=== PATIENT | female | born 1960 | race African-American/Black ===

== ENCOUNTER 2019-07-08 10:40 | Emergency (ER) | payer OTHER, BC ==
[2019-07-08 11:01] VITALS: BP 157/89
[2019-07-08] MEDS ORDERED: IBUPROFEN 600 MG TABLET PO ONE (11:34)
[2019-07-08] MEDS ORDERED: ACETAMINOPHEN 325 MG TABLET PO ONE (11:34)
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
== END 2019-07-08 11:59 | disposition home or self-care (01) ==
LOC: ER 10:40
DX: M54.2 Cervicalgia (principal); V43.62XA Car passenger injured in collision with other type car in traffic accident, initial encounter; I10 Essential (primary) hypertension; Z90.710 Acquired absence of both cervix and uterus
CPT/HCPCS: 99283